=== PATIENT | female | born 1980 | race Caucasian/White ===

== ENCOUNTER 2016-09-02 19:00 | Emergency (ER) | payer MEDICAID ==
[~2016-09-02] VITALS: Ht 165.1 cm; Wt 49.0 kg
[2016-09-02 21:08] LABS: Urine RBC None Seen /hpf (0 - 4)
[2016-09-02 21:31] LABS: Basophils # (auto) 0 uL; Basophils % (auto) 0.4 % (0.0-2.0); CONDITION Y; Eosinophils # (auto) 0.1 uL; Eosinophils % (auto) 1.1 % (0.0-7.0); Hematocrit 35.8 % (36.0-46.0); Hemoglobin 11.8 g/dL (12.2-16.2); Lymphocytes # (auto) 2.1 uL; Lymphocytes % (auto) 21.5 % (10.0-50.0); Mean Corpuscular Hemoglobin 28.6 pg (28.0-32.0); Mean Corpuscular Hgb Conc. 33.1 g/dL (32.0-36.0); Mean Corpuscular Volume 86.5 fL (80.0-100.0); Mean Platelet Volume 8.4 fL (7.4-10.4); Monocytes # (auto) 0.5 uL; Monocytes % (auto) 5.3 % (0.0-12.0); Neutrophils # (auto) 7.1 uL; Neutrophils % (auto) 71.7 % (37.0-80.0); Platelet Count (auto) 602 10^3/uL (140-450); Red Cell Distribution Width 13.6 % (11.6-16.0); White Blood Cell 9.9 10^3/uL (4.4-10.8)
[2016-09-02 21:47] LABS: Urine Bilirubin Negative (Negative); Urine Blood Negative /uL (Negative); Urine Ca Oxalate Crystal MOD (None Seen); Urine Color Yellow (Yellow); Urine Glucose Normal (Normal); Urine Ketone Negative (Negative); Urine Mucus MANY (None Seen); Urine Nitrite Negative (Negative); Urine Squamous Epithelial Cell MOD /hpf (<5); Urine WBC Clumps PRESENT /hpf (None Seen); Urine pH 5.5 (5.0-8.0)
[2016-09-02 21:59] LABS: B-Type Natriuretic Peptide 15.67 pg/mL (0-100)
[2016-09-02 22:02] LABS: Albumin 2.4 g/dL (3.4-5.0); BUN/Creatinine Ratio 19.2; Bilirubin, Total 0.4 mg/dL (0.2-1.0); Calcium 8.5 mg/dL (8.5-10.1); Potassium 3.8 mmol/L (3.5-5.1); Total Protein 7.4 g/dL (6.4-8.2)
[2016-09-02 22:28] LABS: Temperature: 24.3 C (20.0-25.0)
[2016-09-03] MEDS ORDERED: SODIUM CHLORIDE 0.9% 1,000 ML IV ONE (01:45)
[2016-09-03] MEDS ORDERED: LEVOFLOXACIN 750MG 150 ML IV ONE (03:00)
[2016-09-03 04:17] VITALS: BP 151/95
== END 2016-09-03 05:28 | disposition home or self-care (01) ==
LOC: ER 19:02
DX: J18.9 Pneumonia, unspecified organism (principal); F17.210 Nicotine dependence, cigarettes, uncomplicated; F15.10 Other stimulant abuse, uncomplicated; F11.10 Opioid abuse, uncomplicated; R53.83 Other fatigue; R07.89 Other chest pain
CPT/HCPCS: 36415; 71010; 80053; 80307; 81001; 81025; 83880; 84484; 85025; 87040; 93005; 94761; 96361; 96365; 96366; 99285; J1956; J7030